=== PATIENT | female | born 1990 | race Two or more races ===

== ENCOUNTER 2019-08-23 09:00 | Emergency (ER) | payer OTHER ==
[~2019-08-23] VITALS: Ht 162.6 cm; Wt 50.8 kg
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
--- NOTE | 2019-08-23 09:20 | NUR ---
5150 HOLD PLACED BY [employer] OFFICER TODD LYNCH #[id number], CASE # [id number].
[2019-08-23] MEDS ORDERED: HALOPERIDOL LACTATE INJ 5 MG/ML VIAL IM ONE (09:30)
[2019-08-23] MEDS ORDERED: LORAZEPAM INJ 2 MG/ML VIAL ONE ×2 (09:30→09:37)
[2019-08-23] MEDS ORDERED: LORAZEPAM INJ 2 MG/ML VIAL IM ONE (09:30)
[2019-08-23] MEDS ORDERED: HALOPERIDOL LACTATE INJ 5 MG/ML VIAL ONE ×2 (09:30→09:35)
[2019-08-23 09:34] LABS: BASOPHILS % (AUTO) 0.7 % (0.0-2.0); EOSINOPHILS % (AUTO) 0.8 % (0.0-6.0); HEMATOCRIT 41 % (33-45); LYMPHOCYTES # (AUTO) 1.3 /CMM (0.8-4.8); LYMPHOCYTES % (AUTO) 23.5 % (20.0-44.0); MEAN CORPUSCULAR HGB CONC 34 g/dl (31.0-36.0); MEAN CORPUSCULAR VOLUME 91 fL (82-100); MONOCYTES # (AUTO) 0.4 /CMM (0.1-1.30); MONOCYTES % (AUTO) 7.2 % (2.0-12.0); NEUTROPHILS # (AUTO) 3.9 /CMM (1.8-8.9); NEUTROPHILS % (AUTO) 67.8 % (43.0-81.0); PLATELET COUNT (AUTO) 285 /CMM (150-450); RED BLOOD CELL COUNT(AUTO) 4.57 MIL/uL (4.0-5.2); WHITE BLOOD COUNT (AUTO) 5.7 K/uL (4.3-11.0)
[2019-08-23 10:05] LABS: ALANINE AMINOTRANSFERASE 18 U/L (12-78); ALBUMIN 3.9 g/dL (3.4-5.0); ALCOHOL, BLOOD < 3 mg/dL (0-0); ALKALINE PHOSPHATASE 82 U/L (46-116); ASPARTATE AMINOTRANSFERASE 20 U/L (15-37); BILIRUBIN,DIRECT 0.2 mg/dL (0.0-0.2); CALCIUM, SERUM 8.9 mg/dL (8.5-10.1); CARBON DIOXIDE 25 mmol/L (21-32); CHLORIDE 104 mmol/L (98-107); CREATININE 0.7 mg/dL (0.6-1.3); GLUCOSE 96 mg/dL (74-106); POTASSIUM 3.5 mmol/L (3.5-5.1); SODIUM SERUM 138 mmol/L (136-145); TOTAL PROTEIN, SERUM 7.4 g/dL (6.4-8.2); UREA NITROGEN, BLOOD 9 mg/dL (7-18)
[2019-08-23 10:08] LABS: ACETAMINOPHEN 0 ug/ml (10-30); SALICYLATE 2.6 mg/dL (2.8-20.0)
--- NOTE | 2019-08-23 10:22 | NUR ---
PATIENT ASLEEP IN BED, HOOKED TO MONITOR, WILL CONTINUE TO MONITOR ACCORDINGLY
--- NOTE | 2019-08-23 18:08 | NUR ---
PATIENT COOPERATING WELL, TOOK A SHOWER IN THE BATHROOM. PROPER CLOTHING PROVIDED. URINE SAMPLE SENT TO LAB.
[2019-08-23 19:17] LABS: APPEARANCE,URINE Slightly Cloudy (CLEAR); BILIRUBIN,URINE SMALL (NEGATIVE); BLOOD, URINE Large Ery/uL (NEGATIVE); COLOR,URINE DARK YELLOW (YELLOW); KETONES,URINE 15 (NEGATIVE); LEUKOCYTE ESTERASE ,URINE Negative (NEGATIVE); NITRITE, URINE Negative (NEGATIVE); PH,URINE 5.5 (5.0-8.0); PROTEIN,URINE 100 mg/dl (NEGATIVE); UGLUCOSE Negative (NEGATIVE)
[2019-08-23 19:28] LABS: BACTERIA,URINE Few /HPF (None Seen); WBC,URINE 0-2 /HPF (0-3)
[2019-08-23 19:30] LABS: SQUAMOUS EPITHELIAL CELL,UR Few /HPF (None Seen)
--- NOTE | 2019-08-23 20:09 | NUR ---
PER EDILMA LAWTON PT TOO UNAROUSABLE FOR EVALUATION. RECOMMENDED FOR PT TO SLEEP FOR A FEW HOURS AND BE FULLY AWAKE, SPEAKING IN FULL SENTENCES BEFORE CALLING FOR EVAL
--- NOTE | 2019-08-24 02:07 | NUR ---
CALLED [facility] FOR EVALUATION
--- NOTE | 2019-08-24 04:51 | NUR ---
EDILMA JACK AT BEDSIDE FOR EVALUATION
[2019-08-24 06:48] VITALS: BP 114/67
--- NOTE | 2019-08-24 06:51 | NUR ---
Patient given written and verbal discharge instructions. Patient verbalizes understanding of instructions. Patient is ambulatory with steady gait. Refuses offer of care home placement. Patient given list of available shelters in surrounding area.Pt ambulatory with a steady gait. Denies SI/HI at this time. No acute distress noted at this time. Provided pt with food prior to discharge. Arm band removed.
== END 2019-08-24 06:54 | disposition home or self-care (01) ==
LOC: ER 09:06
DX: F28 Other psychotic disorder not due to a substance or known physiological condition (principal); Z60.2 Problems related to living alone
CPT/HCPCS: 36415; 80048; 80076; 80305; 80307; 80329; 81001; 84702; 85025; 96372 ×2; 99285; G0480; J1630 ×2; J2060; 81000-TC